=== PATIENT | female | born 1995 | race African-American/Black ===

== ENCOUNTER 2016-10-30 21:07 | Inpatient (IN) | payer OTHER ==
[~2016-10-30] VITALS: Ht 160 cm; Wt 61.0 kg
[2016-10-30 22:58] LABS: CALCIUM 9.1 mg/dL (8.5-10.1); CARBON DIOXIDE 24.1 mmol/L (21-32); CHLORIDE SERUM 106 mmol/L (98-107); CREATININE SERUM 0.8 mg/dL (0.6-1.0); GFR1 > 60 mL/min; GLUCOSE SERUM 111 mg/dL (74-106); POTASSIUM SERUM 3.5 mmol/L (3.5-5.1); SODIUM SERUM 144 mmol/L (136-145)
[2016-10-30 23:03] LABS: ALKALINE PHOSPHATASE 64 U/L (46-116); ALT/SGPT 18 U/L (14-59); AST/SGOT 13 U/L (15-37); BASOPHIL % 0.2 % (0-2); BILIRUBIN TOTAL 0.43 mg/dL (0.20-1.00); LIPASE 149 IU/L (73-393); PLATELET COUNT 202 x10^3mcL (130-400); RED CELL DISTRIBUTION WIDTH 13.2 % (11.5-14.5); TOTAL PROTEIN, SERUM 8.2 g/dL (6.4-8.2)
[2016-10-30 23:06] LABS: AMYLASE 117 U/L (25-115)
[2016-10-31] VITALS (8 sets, daily range): BP systolic 90–106; BP diastolic 37–59
[2016-10-31 00:15] LABS: microscopic required? YES; urine erythrocyte 2+ (NEGATIVE)
[2016-10-31 04:00] LABS: MAGNESIUM 1.6 mg/dL (1.8-2.4); PHOSPHOROUS 2.4 mg/dL (2.5-4.9)
[2016-10-31 04:08] LABS: T3 TOTAL 1.32 ng/mL
[2016-10-31 04:10] LABS: CHOLESTEROL/HDL RATIO 2.1
[2016-10-31 04:13] LABS: FREE T4 1.11 ng/dL (0.76-1.46); T4(THYROXINE) 9.3 ug/dL (4.7-13.3)
[2016-10-31 04:22] LABS: AMPHETAMINE QUAL UR NONE DETECTED (NEG <=1000)
[2016-10-31 05:51] LABS: BASOPHIL % 0.3 % (0-2); PLATELET COUNT 170 x10^3mcL (130-400); RED CELL DISTRIBUTION WIDTH 13.1 % (11.5-14.5)
[2016-10-31 06:02] LABS: CALCIUM 8.2 mg/dL (8.5-10.1); CARBON DIOXIDE 24.9 mmol/L (21-32); CHLORIDE SERUM 106 mmol/L (98-107); CREATININE SERUM 0.6 mg/dL (0.6-1.0); GFR1 > 60 mL/min; GLUCOSE SERUM 98 mg/dL (74-106); MAGNESIUM 1.7 mg/dL (1.8-2.4); PHOSPHOROUS 4.4 mg/dL (2.5-4.9); POTASSIUM SERUM 3.7 mmol/L (3.5-5.1); SODIUM SERUM 140 mmol/L (136-145)
[2016-11-01 06:12] VITALS: BP 107/62
[2016-11-01 06:20] LABS: CALCIUM 8.3 mg/dL (8.5-10.1); CARBON DIOXIDE 27.2 mmol/L (21-32); CHLORIDE SERUM 107 mmol/L (98-107); CREATININE SERUM 0.6 mg/dL (0.6-1.0); GFR1 > 60 mL/min; GLUCOSE SERUM 79 mg/dL (74-106); MAGNESIUM 1.8 mg/dL (1.8-2.4); POTASSIUM SERUM 3.9 mmol/L (3.5-5.1); SODIUM SERUM 140 mmol/L (136-145)
[2016-11-01 06:26] LABS: PLATELET COUNT 144 x10^3mcL (130-400); RED CELL DISTRIBUTION WIDTH 13.3 % (11.5-14.5)
[2016-11-01 09:25] LABS: BAND NEUTROPHIL 0 % (0-10); BASOPHIL 0 % (0-2); MONOCYTE 2 % (0-7); SEGMENTED NEUTROPHILS 62 % (37-75)
[2016-11-01 09:26] LABS: PLATELET MORPHOLOGY PLATELETS NORMAL; rbc morphology (normal/abnorm) NORMAL (NORMAL)
[2016-11-01 10:51] VITALS: BP 103/50
[2016-11-01 14:10] VITALS: BP 109/54
[2016-11-01 16:50] VITALS: Ht 160 cm; Wt 61.0 kg
[2016-11-01 18:08] VITALS: BP 112/63
[2016-11-01 20:37] VITALS: BP 104/49
[2016-11-02 05:16] VITALS: BP 108/53
[2016-11-02 06:20] LABS: PLATELET COUNT 150 x10^3mcL (130-400); RED CELL DISTRIBUTION WIDTH 13.2 % (11.5-14.5)
[2016-11-02 06:38] LABS: CALCIUM 8.2 mg/dL (8.5-10.1); CARBON DIOXIDE 24.4 mmol/L (21-32); CHLORIDE SERUM 109 mmol/L (98-107); CREATININE SERUM 0.6 mg/dL (0.6-1.0); GFR1 > 60 mL/min; GLUCOSE SERUM 83 mg/dL (74-106); MAGNESIUM 1.8 mg/dL (1.8-2.4); PHOSPHOROUS 3.7 mg/dL (2.5-4.9); POTASSIUM SERUM 3.8 mmol/L (3.5-5.1); SODIUM SERUM 144 mmol/L (136-145)
[2016-11-02 07:09] LABS: SEGMENTED NEUTROPHILS 52 % (37-75)
[2016-11-02 07:10] LABS: BAND NEUTROPHIL 0 % (0-10)
[2016-11-02 07:11] LABS: BASOPHIL 1 % (0-2); MONOCYTE 9 % (0-7)
[2016-11-02 07:12] LABS: rbc morphology (normal/abnorm) NORMAL (NORMAL)
[2016-11-02 08:56] VITALS: BP 109/41
[2016-11-02 13:36] VITALS: BP 110/58
[2016-11-02 17:49] VITALS: BP 108/47
[2016-11-02 20:41] VITALS: BP 107/62
[2016-11-03 05:25] VITALS: BP 100/45
[2016-11-03 09:34] VITALS: BP 115/54
[2016-11-03] MEDS ORDERED: LAC PO (11:00)
[2016-11-03] MEDS ORDERED: CIPRO500 MG PO (11:03)
[2016-11-03 11:42] VITALS: BP 115/54
== END 2016-11-03 13:10 | disposition home or self-care (01) | DRG 720 ==
LOC: ED 21:07 → DU 10-31 01:44 → MU 11-02 18:36
PROVIDERS: Specialist; ADMIT Family Medicine
DX: A41.9 Sepsis, unspecified organism (principal); N17.0 Acute kidney failure with tubular necrosis; N10 Acute pyelonephritis; R65.20 Severe sepsis without septic shock; E83.42 Hypomagnesemia; E83.39 Other disorders of phosphorus metabolism; E83.51 Hypocalcemia; D64.9 Anemia, unspecified; Z68.23 Body mass index [BMI] 23.0-23.9, adult
CPT/HCPCS: 83880; 84439; C9113; J0696; J1885; J2270; J2405; J3010; J7030

== ENCOUNTER 2017-10-28 16:26 | Emergency (ER) | payer OTHER ==
[~2017-10-28] VITALS: Ht 160 cm; Wt 64.4 kg
[~2017-10-28 16:26] MED LIST: CIPRO500 MG PO; LAC PO
[2017-10-28 16:30] VITALS: Ht 160 cm; Wt 64.4 kg
[2017-10-28 17:26] LABS: BASOPHIL % 0.8 % (0-2); PLATELET COUNT 191 x10^3mcL (130-400); RED CELL DISTRIBUTION WIDTH 13.7 % (11.5-14.5)
[2017-10-28 17:31] LABS: CALCIUM 8.8 mg/dL (8.5-10.1); CARBON DIOXIDE 28.1 mmol/L (21-32); CHLORIDE SERUM 103 mmol/L (98-107); CREATININE SERUM 0.7 mg/dL (0.6-1.0); GFR1 > 60 mL/min; GLUCOSE SERUM 95 mg/dL (74-106); POTASSIUM SERUM 3.9 mmol/L (3.5-5.1); SODIUM SERUM 140 mmol/L (136-145)
[2017-10-28 18:16] VITALS: BP 124/65
== END 2017-10-28 18:16 | disposition home or self-care (01) ==
LOC: ED 16:26
PROVIDERS: Emergency Medicine
DX: M54.9 Dorsalgia, unspecified (principal); N39.0 Urinary tract infection, site not specified
CPT/HCPCS: J1885

== ENCOUNTER 2017-11-01 22:30 | Emergency (ER) | payer OTHER ==
[~2017-11-01] VITALS: Ht 157.5 cm; Wt 66.7 kg
[2017-11-01 23:04] VITALS: Ht 157.5 cm; Wt 66.7 kg
[2017-11-02 02:50] VITALS: BP 121/95
== END 2017-11-02 02:50 | disposition home or self-care (01) ==
LOC: ED 22:30
DX: M54.42 Lumbago with sciatica, left side (principal)

== ENCOUNTER 2018-02-26 12:37 | Emergency (ER) | payer OTHER ==
[~2018-02-26] VITALS: Ht 160 cm; Wt 64.4 kg
[2018-02-26 12:46] VITALS: Ht 160 cm; Wt 64.4 kg
[2018-02-26 15:57] VITALS: BP 127/82
== END 2018-02-26 15:57 | disposition home or self-care (01) ==
LOC: ED 12:37
DX: S30.814A Abrasion of vagina and vulva, initial encounter (principal); N39.0 Urinary tract infection, site not specified; J02.9 Acute pharyngitis, unspecified; H60.92 Unspecified otitis externa, left ear; X58.XXXA Exposure to other specified factors, initial encounter; Y93.89 Activity, other specified; Y92.89 Other specified places as the place of occurrence of the external cause; Y99.8 Other external cause status
CPT/HCPCS: J1100

== ENCOUNTER 2019-10-18 10:34 | Emergency (ER) | payer OTHER ==
[~2019-10-18] VITALS: Ht 162.6 cm; Wt 68.0 kg
[2019-10-18 10:53] VITALS: Ht 162.6 cm; Wt 68.0 kg
[2019-10-18 13:18] LABS: microscopic required? NO
[2019-10-18 13:29] LABS: urine erythrocyte NEGATIVE (NEGATIVE)
[2019-10-18 14:52] LABS: PLATELET COUNT 241 x10^3mcL (130-400); RED CELL DISTRIBUTION WIDTH 13.2 % (11.5-14.5)
[2019-10-18 15:07] LABS: BAND NEUTROPHIL 0 % (0-10); BASOPHIL 0 % (0-2); MONOCYTE 2 % (0-7); PLATELET MORPHOLOGY PLATELETS NORMAL; SEGMENTED NEUTROPHILS 93 % (37-75); rbc morphology (normal/abnorm) NORMAL (NORMAL)
[2019-10-18 15:10] LABS: CARBON DIOXIDE 27.1 mmol/L (21-32); CHLORIDE SERUM 105 mmol/L (98-107); CREATININE SERUM 0.7 mg/dL (0.6-1.0); GFR1 > 60 mL/min; GLUCOSE SERUM 94 mg/dL (74-106); POTASSIUM SERUM 4.4 mmol/L (3.5-5.1); SODIUM SERUM 140 mmol/L (136-145)
[2019-10-18 15:14] LABS: ALBUMIN 4.1 g/dL (3.4-5.0); ALKALINE PHOSPHATASE 72 U/L (46-116); ALT/SGPT 33 U/L (14-59); AST/SGOT 53 U/L (15-37); BILIRUBIN TOTAL 0.3 mg/dL (0.20-1.00); LIPASE 116 IU/L (73-393); TOTAL PROTEIN, SERUM 8.2 g/dL (6.4-8.2)
[2019-10-18 16:25] VITALS: BP 127/71
== END 2019-10-18 16:25 | disposition home or self-care (01) ==
LOC: ED 10:34
PROVIDERS: Student in an Organized Health Care Education/Training Program
DX: R42 Dizziness and giddiness (principal); R11.2 Nausea with vomiting, unspecified; R10.30 Lower abdominal pain, unspecified; R35.0 Frequency of micturition
CPT/HCPCS: Q0162

== ENCOUNTER 2019-12-28 10:06 | Emergency (ER) | payer OTHER ==
[~2019-12-28] VITALS: Ht 160 cm; Wt 62.6 kg
[2019-12-28 10:30] VITALS: Ht 160 cm; Wt 62.6 kg
[2019-12-28 11:23] LABS: CALCIUM 9.4 mg/dL (8.5-10.1); CARBON DIOXIDE 26.7 mmol/L (21-32); CHLORIDE SERUM 104 mmol/L (98-107); CREATININE SERUM 0.9 mg/dL (0.6-1.0); GFR1 > 60 mL/min; GLUCOSE SERUM 94 mg/dL (74-106); POTASSIUM SERUM 3.2 mmol/L (3.5-5.1); SODIUM SERUM 141 mmol/L (136-145)
[2019-12-28 12:51] VITALS: BP 132/89
== END 2019-12-28 12:51 | disposition home or self-care (01) ==
LOC: ED 10:06
PROVIDERS: Emergency Medicine
DX: F19.10 Other psychoactive substance abuse, uncomplicated (principal)
CPT/HCPCS: J7030